=== PATIENT | male | born 1985 | race Caucasian/White ===

== ENCOUNTER 2022-04-13 19:41 | Emergency (ER) | payer SELFPAY ==
[~2022-04-13] VITALS: Ht 182.9 cm; Wt 99.8 kg
--- NOTE | 2022-04-13 19:44 | NUR ---
PT ELIZABETH ALS. TAKEN TO BED 8
[2022-04-13 19:45] VITALS: BP 142/77
--- NOTE | 2022-04-13 19:47 | NUR ---
Dr. Duenas examining patient.
--- NOTE | 2022-04-13 20:11 | NUR ---
PROVIDED PT WATER AND URINE CUP
[2022-04-13 20:26] LABS: BASOPHILS % (AUTO) 0.4 % (0.0-2.0); EOSINOPHILS # (AUTO) 0.1 K/uL (0-0.4); EOSINOPHILS % (AUTO) 1.3 % (0.0-4.0); HEMATOCRIT 44.4 % (36-52); HEMOGLOBIN 14.9 g/dL (12.0-18.0); LYMPHOCYTES # (AUTO) 1.6 K/uL (2.0-11.5); LYMPHOCYTES % (AUTO) 17.3 % (20.5-51.1); MEAN CORPUSCULAR HEMOGLOBIN 30 pg (27-31); MEAN CORPUSCULAR HGB CONC 34 g/dL (33-37); MONOCYTES # (AUTO) 1.1 K/uL (0.8-1.0); MONOCYTES % (AUTO) 12.1 % (1.7-9.3); NEUTROPHILS # (AUTO) 6.4 K/uL (1.8-7.7); NEUTROPHILS % (AUTO) 68.9 % (42.2-75.2); PLATELET COUNT (AUTO) 290 K/uL (140-450); RED BLOOD CELL COUNT(AUTO) 4.93 MIL/uL (4.20-6.10); RED CELL DISTRIBUTION WIDTH 13.4 % (11.6-13.7); WHITE BLOOD COUNT (AUTO) 9.3 K/uL (4.8-10.8)
[2022-04-13 20:43] LABS: ALBUMIN 4.3 g/dL (3.4-5.0); ANION GAP 14.3 (8-16); ASPARTATE AMINOTRANSFERASE 44 U/L (15-37); CARBON DIOXIDE 27.1 mmol/L (21-32); CHLORIDE 97 mmol/L (98-107); CREATININE 1.7 mg/dL (0.6-1.3); GFR ARICAN-AMERICAN 59 mL/min (>90); GLUCOSE 111 mg/dL (74-106); POTASSIUM 4.4 mmol/L (3.5-5.1); SALICYLATE < 2.8 mg/dL (2.8-20.0); SODIUM SERUM 134 mmol/L (136-145); TOTAL BILIRUBIN 0.7 mg/dL (0.0-1.0); UREA NITROGEN, BLOOD 29 mg/dL (7-18)
[2022-04-13 20:44] LABS: ACETAMINOPHEN < 0.5 ug/ml (10-30)
--- NOTE | 2022-04-13 20:51 | NUR ---
PT BACK FROM BATHROOM . URINE PROVIDED
--- NOTE | 2022-04-13 20:52 | NUR ---
37 Y/O MALE, HOMELESS, BIBA FOR OVERDOSE. [facility] REPORTS NON REPONSIVE AND AGONAL BREATHING AT SCENE. GLUCOSE 147. PT HAS MULTIPLE LACS AND ABRASION. PT STATES HE TOOK A BLUE PILL HE THOUGHT TO BE "BAM". NARCAN 0.5MG NASAL SPRAY GIVEN, PT NOW ALERT AND ORIENTED X4, LIMITED ROM, DROWSY. PT C/O 7/10 HERNÁNDEZ AND HUNGRY AT THIS TIME. DENIES N/V/D, SKIN IS WARM/DRY/MULTIPLE ABRASIONS ON BODY; AAOX4 AMBULATES WITH ASSIST; LUNGS CLEAR BL, TACHYPNEA; HR EVEN AND TACHYCARDIC; PT DENIES ANY FEVER, CP, SOB, OR COUGH AT THIS TIME; PATIENT STATES PAIN OF 8/10 AT THIS TIME, HERNÁNDEZ; PATIENT POSITIONED FOR COMFORT; HOB ELEVATED; BEDRAILS UP X2; BED DOWN. ER MD MADE AWARE OF PT STATUS. PMH: ILLICIT DRUG USE NKA MED: DENIES
[2022-04-13 21:40] LABS: BARBITURATE, URINE NEGATIVE ng/ml (NEG <=200); BENZODIAZEPINE, URINE POSITIVE ng/mL (NEG <=200); CANNABINOID, URINE NEGATIVE ng/mL (NEG <=50); COCAINE, URINE NEGATIVE ng/mL (NEG <=300); OPIATE, URINE NEGATIVE ng/mL (NEG <=2000); PHENCYCLIDINE SCREEN,URINE NEGATIVE ng/mL (NEG <=25)
[2022-04-13] MEDS ORDERED: NALO4SPR NS (22:29)
[2022-04-13 23:10] VITALS: BP 142/77
--- NOTE | 2022-04-13 23:10 | NUR ---
Patient discharged with v/s stable. Written and verbal after care instructions given and explained. Patient alert, oriented and verbalized understanding of instructions. Ambulatory with steady gait. All questions addressed prior to discharge. ID band removed. Patient advised to follow up with PMD. Rx of NARCAN given. Patient educated on indication of medication including possible reaction and side effects. Opportunity to ask questions provided and answered.
--- NOTE | 2022-04-13 23:10 | NUR ---
The patient's care was reviewed and supervised by Julia Valdez, RN, RN.
== END 2022-04-13 23:10 | disposition home or self-care (01) ==
LOC: MED 19:41
DX: T50.901A Poisoning by unspecified drugs, medicaments and biological substances, accidental (unintentional), initial encounter (principal); F13.10 Sedative, hypnotic or anxiolytic abuse, uncomplicated; F15.10 Other stimulant abuse, uncomplicated; N17.9 Acute kidney failure, unspecified; Z79.899 Other long term (current) drug therapy; Y92.89 Other specified places as the place of occurrence of the external cause
CPT/HCPCS: 36415; 80053; 80305; 81002; 85025; 99285; G0480; G0482